=== PATIENT | male | born 1980 | race Two or more races ===

== ENCOUNTER 2019-01-26 06:51 | Emergency (ER) | payer SELFPAY ==
[~2019-01-26] VITALS: Ht 167.6 cm; Wt 72.6 kg
[2019-01-26] MEDS ORDERED: LORAZEPAM 0.5 MG TABLET ONE (07:16)
[2019-01-26] MEDS ORDERED: ACETAMINOPHEN ES 500 MG TABLET ONE (07:16)
--- NOTE | 2019-01-26 07:19 | NUR ---
RICH FROM HOME. TO ER BED 9. AAOX4. NO RESP DISTRESS, BREATHING EVEN AND UNLABORED. C/O PANIC ATTACK @ 2AM THIS MORNING AND CANT SLEEP THEN. REPORTS THAT HE HAS BEEN HAVING STRESS AT WORK WITH CHANGES ON HIS SHIFT. TO IS ANXIOUS. MD AT BEDSIDE FOR EVAL. BAM RECEIVED, NOTED AND CARRIED.
--- NOTE | 2019-01-26 07:20 | NUR ---
LAB AND XRAY AT BEDSIDE
[2019-01-26] MEDS ORDERED: ACETAMINOPHEN ES 500 MG TABLET PO ONE (07:30)
[2019-01-26] MEDS ORDERED: LORAZEPAM 1 MG TABLET PO ONE (07:30)
--- NOTE | 2019-01-26 07:35 | NUR ---
PT ENDRORSED TO [facility]AN FOR ANA.
--- NOTE | 2019-01-26 07:36 | NUR ---
ENDORSEMENT RECEIVED FROM JANELLE MANZANARES FOR ANA
[2019-01-26 07:40] LABS: BASOPHILS % (AUTO) 0.5 % (0.0-2.0); EOSINOPHILS % (AUTO) 0.4 % (0.0-6.0); HEMATOCRIT 47 % (39-51); LYMPHOCYTES # (AUTO) 1.7 /CMM (0.8-4.8); LYMPHOCYTES % (AUTO) 24.9 % (20.0-44.0); MEAN CORPUSCULAR HGB CONC 34 g/dl (31.0-36.0); MEAN CORPUSCULAR VOLUME 92 fL (80-96); MONOCYTES # (AUTO) 0.5 /CMM (0.1-1.30); NEUTROPHILS # (AUTO) 4.5 /CMM (1.8-8.9); NEUTROPHILS % (AUTO) 67.2 % (43.0-81.0); PLATELET COUNT (AUTO) 198 /CMM (150-450); RED BLOOD CELL COUNT(AUTO) 5.09 MIL/uL (4.5-6.0); WHITE BLOOD COUNT (AUTO) 6.8 K/uL (4.3-11.0)
[2019-01-26 07:45] LABS: CALCIUM, SERUM 9.3 mg/dL (8.5-10.1); CARBON DIOXIDE 27 mmol/L (21-32); CHLORIDE 103 mmol/L (98-107); CREATININE 0.9 mg/dL (0.6-1.3); GLUCOSE 117 mg/dL (74-106); POTASSIUM 4.2 mmol/L (3.5-5.1); SODIUM SERUM 140 mmol/L (136-145); UREA NITROGEN, BLOOD 15 mg/dL (7-18)
[2019-01-26 07:51] LABS: ALANINE AMINOTRANSFERASE 43 U/L (12-78); ALBUMIN 4.2 g/dL (3.4-5.0); ALKALINE PHOSPHATASE 123 U/L (46-116); ASPARTATE AMINOTRANSFERASE 13 U/L (15-37); BILIRUBIN,DIRECT 0.1 mg/dL (0.0-0.2); BILIRUBIN,TOTAL 0.6 mg/dL (0.2-1.0); TOTAL PROTEIN, SERUM 7.9 g/dL (6.4-8.2)
--- NOTE | 2019-01-26 08:09 | NUR ---
Patient discharged to home in stable condition. Written and verbal after care instructions given. Patient verbalizes understanding of instruction.
[2019-01-26 08:10] VITALS: BP 144/89
== END 2019-01-26 08:11 | disposition home or self-care (01) ==
LOC: ER 06:59
DX: G47.00 Insomnia, unspecified (principal); F41.9 Anxiety disorder, unspecified
CPT/HCPCS: 36415; 71045-TC; 80048-TC; 80076-TC; 84484-TC; 85025-TC

== ENCOUNTER 2019-02-28 07:53 | Emergency (ER) | payer SELFPAY ==
[~2019-02-28] VITALS: Ht 170.2 cm; Wt 65.8 kg
--- NOTE | 2019-02-28 08:04 | NUR ---
Patient came in to the ER c/o chest pain sharp and right arm weakness, on room air, breathing evenly and unlabored. Kept comfortable, will continue to monitor accordingly.
[2019-02-28 08:39] LABS: BASOPHILS # (AUTO) 0.1 /CMM (0.0-0.2); BASOPHILS % (AUTO) 0.7 % (0.0-2.0); EOSINOPHILS % (AUTO) 0.1 % (0.0-6.0); HEMATOCRIT 42 % (39-51); HEMOGLOBIN 14.5 g/dL (13.5-17.5); LYMPHOCYTES # (AUTO) 1.5 /CMM (0.8-4.8); LYMPHOCYTES % (AUTO) 17.9 % (20.0-44.0); MEAN CORPUSCULAR HGB CONC 35 g/dl (31.0-36.0); MEAN CORPUSCULAR VOLUME 93 fL (80-96); MONOCYTES # (AUTO) 0.3 /CMM (0.1-1.30); MONOCYTES % (AUTO) 4.2 % (2.0-12.0); NEUTROPHILS # (AUTO) 6.3 /CMM (1.8-8.9); NEUTROPHILS % (AUTO) 77.1 % (43.0-81.0); PLATELET COUNT (AUTO) 208 /CMM (150-450); RED BLOOD CELL COUNT(AUTO) 4.52 MIL/uL (4.5-6.0); WHITE BLOOD COUNT (AUTO) 8.2 K/uL (4.3-11.0)
[2019-02-28 08:48] LABS: CALCIUM, SERUM 8.8 mg/dL (8.5-10.1); CARBON DIOXIDE 24 mmol/L (21-32); CHLORIDE 104 mmol/L (98-107); CREATININE 0.9 mg/dL (0.6-1.3); GLUCOSE 116 mg/dL (74-106); POTASSIUM 3.8 mmol/L (3.5-5.1); SODIUM SERUM 140 mmol/L (136-145); UREA NITROGEN, BLOOD 13 mg/dL (7-18)
[2019-02-28 09:38] LABS: ALANINE AMINOTRANSFERASE 27 U/L (12-78); ALBUMIN 4.6 g/dL (3.4-5.0); ALKALINE PHOSPHATASE 61 U/L (46-116); ASPARTATE AMINOTRANSFERASE 23 U/L (15-37); BILIRUBIN,DIRECT 0.2 mg/dL (0.0-0.2); BILIRUBIN,TOTAL 0.6 mg/dL (0.2-1.0)
[2019-02-28 11:13] VITALS: BP 134/89
--- NOTE | 2019-02-28 11:14 | NUR ---
Patient discharged to home in stable condition. Written and verbal after care instructions given. Patient verbalizes understanding of instruction.IV removed. Catheter intact and site benign. Pressure and 4x4 applied to site. No bleeding noted.
== END 2019-02-28 11:14 | disposition home or self-care (01) ==
LOC: ER 07:55
DX: R07.89 Other chest pain (principal)
CPT/HCPCS: 36415; 71045-TC; 80048-TC; 80076-TC; 84484-TC; 85025-TC

== ENCOUNTER 2019-04-13 10:09 | Emergency (ER) | payer SELFPAY ==
[~2019-04-13] VITALS: Ht 162.6 cm; Wt 65.3 kg
[2019-04-13 10:16] VITALS: BP 128/87
== END 2019-04-13 10:56 | disposition home or self-care (01) ==
LOC: ER 10:09
DX: M94.0 Chondrocostal junction syndrome [Tietze] (principal)

== ENCOUNTER 2025-04-10 08:22 | Emergency (ER) | payer MEDICAID ==
[~2025-04-10] VITALS: Ht 165.1 cm; Wt 70.3 kg
[2025-04-10 08:25] VITALS: BP 154/76; TEMP 98.3
[2025-04-10] MEDS ORDERED: OLAN10TA3 PO (08:39)
[2025-04-10] MEDS ORDERED: SERT50TA PO (08:39)
[2025-04-10 08:44] VITALS: O2SAT 99
== END 2025-04-10 08:57 | disposition home or self-care (01) ==
LOC: ER 08:25
DX: F32.A Depression, unspecified (principal); Z76.0 Encounter for issue of repeat prescription; I10 Essential (primary) hypertension; F41.9 Anxiety disorder, unspecified; Z79.899 Other long term (current) drug therapy

== ENCOUNTER 2025-06-06 13:34 | Emergency (ER) | payer MEDICAID, OTHER ==
[~2025-06-06] VITALS: Ht 165.1 cm; Wt 72.6 kg
[~2025-06-06 13:34] MED LIST: OLAN10TA3 PO; SERT50TA PO
[2025-06-06] MEDS ORDERED: SERT50TA PO (13:53)
[2025-06-06] MEDS ORDERED: OLAN10TA3 PO (13:53)
[2025-06-06 13:57] VITALS: BP 143/78; TEMP 98.3; O2SAT 97
== END 2025-06-06 13:58 | disposition home or self-care (01) ==
LOC: ER 13:40
DX: Z76.0 Encounter for issue of repeat prescription (principal); Z79.899 Other long term (current) drug therapy